=== PATIENT | male | born 1990 | race Asian ===

== ENCOUNTER 2019-03-06 10:48 | Emergency (ER) | payer OTHER ==
[~2019-03-06] VITALS: Ht 165.1 cm; Wt 69.5 kg
[2019-03-06] MEDS ORDERED: KETOROLAC TROMETHAMINE 10 MG TAB PO ONE (12:00)
--- NOTE | 2019-03-06 12:19 | REP ---
Lumbar spine series: Five views. History: Back pain radiating to the right hip. Findings: Lumbar vertebral body heights are preserved. Alignment is normal. There is no evidence of spondylolysis or spondylolisthesis. Disc spaces are maintained. Psoas margins are symmetric. Sacrum and SI joints are unremarkable. Normal bowel gas pattern. Impression: Negative lumbar spine radiographs. Electronically Signed by Mitchell Argueta MD 03/06/2019 12:11 P
[2019-03-06 13:07] VITALS: BP 131/69
== END 2019-03-06 13:17 | disposition home or self-care (01) ==
LOC: M ED 10:48
DX: M25.551 Pain in right hip (principal)

== ENCOUNTER 2020-05-07 12:30 | Emergency (ER) | payer OTHER ==
[~2020-05-07] VITALS: Ht 167.6 cm; Wt 70.0 kg
[2020-05-07 12:31] VITALS: BP 142/88
[2020-05-07] MEDS ORDERED: NEUR300C PO (13:13)
[2020-05-07] MEDS ORDERED: GABA-843 PO (15:03)
== END 2020-05-07 13:18 | disposition home or self-care (01) ==
LOC: M ED 12:30
DX: M54.16 Radiculopathy, lumbar region (principal); M54.5 Low back pain